=== PATIENT | male | born 1980 | race Caucasian/White ===

== ENCOUNTER 2019-05-12 18:54 | Emergency (ER) | payer OTHER, SELFPAY ==
[2019-05-12 18:54] VITALS: BP 165/95; PULSE 99; RESP 15; TEMP 37.1; O2SAT 100
[2019-05-12 19:01] VITALS: RESP 16
--- NOTE | 2019-05-12 19:02 | ED.OVERDOSE ---
HPI - Overdose General Chief Complaint: Overdose Stated Complaint: poss o.d Time Seen by Provider: 05/12/19 19:03 Source: patient, EMS and RN notes reviewed Mode of arrival: EMS Limitations: no limitations History of Present Illness HPI Narrative: A 38 y/o male presents to the ED via EMS after accidently overdosing of Fentanyl just BELLOWS TESTER. Per EMS the pt was found unconscious and unresponsive by a bystander. They state that PD gave the pt 12 mg of intranasal Narcan with no change and that they gave the pt 2 more mg of intranasal Narcan in route and that the pt then started to come around. The pt states that he using Fentanyl occasionally and that he snorted some earlier tonight. Upon arrival the pt is A&Ox4 and is wishing to sign out AMA and understands the risk of doing so. He denies any SOB, CP, N/V/D, ABD pain, SI, and all other complaints at this time. complaint: accidental overdose Onset (ago): minute(s) (just BELLOWS TESTER) Timing confirmed by: other (bystander) How Overdose Was Discovered: other (Found by bystander) Treatments Prior to Arrival: narcan (intranasal 14 mg) Related Data Allergies Allergy/AdvReac Type Severity Reaction Status Date / Time No Known Allergies Allergy Verified 05/12/19 19:04 Review of Systems Review of Systems: Narrative: CONSTITUTIONAL: Denies fever, chills, or sweats. CARDIOVASCULAR: Denies chest pain, palpitations, or edema. RESPIRATORY: Denies cough or dyspnea. GASTROINTESTINAL: Denies abdominal pain, nausea, vomiting, or diarrhea. GENITOURINARY: Denies dysuria or hematuria. SKIN: Denies rash or itching. MUSCULOSKELETAL: Denies back pain, joint pain, or myalgia. NEUROLOGIC: Denies headache, numbness, or weakness. PSYCHIATRIC: Denies SI, anxiety, or depression. All systems reviewed & are unremarkable except as noted in HPI and below PMFSH Past Medical History Medical History (Updated 05/12/19 @ 19:10 by Divine Valdez MD) Medical history unknown Surgical History Surgical History (Updated 05/12/19 @ 19:06 by Simone Mares) Surgical history unknown Social History Social History (Updated 05/12/19 @ 19:08 by Simone Mares) Smoking status: Unknown if ever smoked Substance use: current Substance use type: opiates Other substance usage details: Fentanyl. Gender identity (if verbalized by the patient): Male Exam Narrative: Exam Narrative: GENERAL: Well-appearing, well-nourished, and in no acute distress. HEAD: Normocephalic, atraumatic. EYES: PERRLA and EOMI. ENT: Nares clear, no rhinorrhea or epistaxis. Mucous membranes moist. NECK: Supple. CHEST: Clear to auscultation. No respiratory distress. HEART: Regular rate and rhythm. No murmur heard. Normal peripheral pulses. ABDOMEN: Soft, nontender, nondistended, normal active bowel sounds. EXTREMITIES: Normal range of motion. No edema. SKIN: Warm, dry, no rash. NEURO: No focal deficits. Alert and oriented X3. Course Course Emergency Course: Patient presented to the emergency department after non-intentional drug overdose. Patient states this was accidental, no suicidal ideation. Patient is currently alert and oriented to person, place and to time. Patient is refusing any laboratory work, refusing period of observation. I did explain to patient that I would recommend at least a period of 4 hours of observation to make sure that he does not have any apnea, somnolence that could linger from the fentanyl, patient understands risks, has capacity to make decision to leave the hospital AGAINST MEDICAL ADVICE. Patient was advised that he could from leaving AGAINST MEDICAL ADVICE. Patient voiced understanding. Patient then left the emergency department. Vital Signs Vital signs: Vital Signs Temperature 37.1 C 05/12/19 18:54 Pulse Rate 99 05/12/19 18:54 Respiratory Rate 15 05/12/19 18:54 Blood Pressure 165/95 H 05/12/19 18:54 Pulse Oximetry 100 05/12/19 18:54 Temperature 37.1 C 05/12/19 18:54 Pulse Rate 99 05/12/19 1
--- NOTE | 2019-05-12 19:04 | PC.NURSE ---
Dr. Valdez at the bedside. Pt states he wants to sign out AMA. Dr. Valdez explaining risks of leaving. Pt still states he wants to leave. States he understands all the risk.
== END 2019-05-12 19:14 | disposition left against medical advice (07) ==
LOC: ANHED 19:12
PROVIDERS: Emergency Provider Emergency Medicine
DX: T40.4X1A Poisoning by other synthetic narcotics, accidental (unintentional), initial encounter (principal)
CPT/HCPCS: 99281